=== PATIENT | female | born 1935 | race Caucasian/White ===

== ENCOUNTER 2018-06-25 08:39 | Emergency (ER) | payer MEDICARE, OTHER ==
[~2018-06-25] VITALS: Ht 165.1 cm; Wt 63.5 kg
[2018-06-25] MEDS ORDERED: LEVSOD150 (09:26)
[2018-06-25] MEDS ORDERED: DOCU100 PO (09:53)
== END 2018-06-25 10:20 | disposition home or self-care (01) ==
LOC: ER 08:39
DX: K59.00 Constipation, unspecified (principal); Z79.899 Other long term (current) drug therapy
CPT/HCPCS: 99283

== ENCOUNTER 2021-10-02 13:49 | Observation (INO) | payer MEDICARE, OTHER ==
[~2021-10-02] VITALS: Ht 165.1 cm; Wt 66.8 kg
[~2021-10-02 13:49] MED LIST: DOCU100 PO; LEVSOD150
[2021-10-02 14:44] LABS: BASOPHILS ABSOLUTE AUTO 0.05 K/mm3 (0.00-0.23); BASOPHILS PERCENT AUTO 1 % (0-2); EOSINOPHILS PERCENT AUTO 7 % (0-6); Hemoglobin 14.1 g/dL (11.5-16.0); IMMATURE GRAN ABSOLUTE AUTO 0.01 K/mm3 (0.00-0.10); IMMATURE GRAN PERCENT AUTO 0 % (0-1); LYMPHOCYTES ABSOLUTE AUTO 1.96 K/mm3 (0.84-5.20); LYMPHOCYTES PERCENT AUTO 32 % (21-46); MONOCYTES ABSOLUTE AUTO 0.58 K/mm3 (0.16-1.47); MONOCYTES PERCENT AUTO 9 % (4-13); Mean Corpuscular HGB 32.3 pg (26.0-34.0); Mean Corpuscular HGB Conc 33.6 g/dL (31.5-36.5); Mean Corpuscular Volume 96 fL (80-100); Mean Platelet Volume 9.5 fL (9.1-12.4); NEUTROPHILS PERCENT AUTO 52 % (41-73); Platelet Count 294 K/mm3 (150-400); RDW Coefficient Variation 11.6 % (11.7-14.2); RDW Standard Deviation 41.3 fL (35.1-46.3); Red Blood Cell Count 4.36 M/mm3 (3.80-5.20)
[2021-10-02 14:57] LABS: Anion Gap 7 mmol/L (6-16); Blood Urea Nitrogen 12 mg/dL (8-24); CO2, Blood 27 mmol/L (21-32); Calcium, Blood 8.7 mg/dL (8.5-10.1); Chloride, Blood 107 mmol/L (98-108); Creatinine, Blood 0.86 mg/dL (0.40-1.00); Glomerular Filtration Rate >60 (60-); Glucose, Blood 150 mg/dL (70-99); Potassium, Blood 3.9 mmol/L (3.5-5.5); Sodium, Blood 141 mmol/L (136-145)
[2021-10-02] MEDS ORDERED: ALEN70 PO (18:29)
[2021-10-02] MEDS ORDERED: ATOR20 PO (18:29)
[2021-10-02] MEDS ORDERED: Voltaren100 GM TOP (18:30)
[2021-10-02] MEDS ORDERED: ASPIR 8181 M1 PO (18:31)
[2021-10-02] MEDS ORDERED: MIRALAX17 GM PO (18:31)
[2021-10-02] MEDS ORDERED: LEVSOD25 PO (18:31)
[2021-10-02] MEDS ORDERED: CYCL0.05OP BOTHEYES (18:32)
--- NOTE | 2021-10-03 02:52 | NUR ---
Received patient from ER, came in for Dyspnea. She is beeing admitted to the floor on observation. Patient AAOX4, Denies pain and disconfort at this time. She is breathing at room air, unlabored. Patient is independent in the room. Able to communicates her needs. Patient is pleasant and cooperative with care. Bed in low position, call light within reach. We will continue to monitor patient for any acute changes.
--- NOTE | 2021-10-03 17:11 | NUR ---
SHIFT SUMMARY PT AxOx4. PLEASANT AND COOPERATIVE WITH CARE. PT HAD ECHO, CT OF LUNGS AND PART 1 OF STRESS TEST TODAY. PT DENIES ANY PAIN. IN TODAY, UPDATED ON PLAN OF CARE. VITAL SIGNS REVIEWED. PT CURRENTLY RESTING IN BED, VISITING . DENIES NEEDS AT THIS TIME. CALL LIGHT IN REACH.
--- NOTE | 2021-10-04 04:31 | NUR ---
SHIFT SUMMARY Patient remains stable, no acute events occurs. Pt denies pain and discofort. Sleeping confortably at this time. Second part of the stress test today. Call light in reach. We are monitoring patient until giving report to the oncoming nurse.
[2021-10-04 05:24] LABS: BASOPHILS ABSOLUTE AUTO 0.04 K/mm3 (0.00-0.23); BASOPHILS PERCENT AUTO 1 % (0-2); EOSINOPHILS ABSOLUTE AUTO 0.81 K/mm3 (0.00-0.68); EOSINOPHILS PERCENT AUTO 13 % (0-6); Hematocrit 40.7 % (33.0-51.0); Hemoglobin 13.5 g/dL (11.5-16.0); IMMATURE GRAN ABSOLUTE AUTO 0.01 K/mm3 (0.00-0.10); IMMATURE GRAN PERCENT AUTO 0 % (0-1); LYMPHOCYTES ABSOLUTE AUTO 2.49 K/mm3 (0.84-5.20); LYMPHOCYTES PERCENT AUTO 41 % (21-46); MONOCYTES ABSOLUTE AUTO 0.57 K/mm3 (0.16-1.47); MONOCYTES PERCENT AUTO 9 % (4-13); Mean Corpuscular HGB 31.9 pg (26.0-34.0); Mean Corpuscular HGB Conc 33.2 g/dL (31.5-36.5); Mean Corpuscular Volume 96 fL (80-100); Mean Platelet Volume 9.5 fL (9.1-12.4); NEUTROPHILS ABSOLUTE AUTO 2.21 K/mm3 (1.96-9.15); NEUTROPHILS PERCENT AUTO 36 % (41-73); Platelet Count 272 K/mm3 (150-400); RDW Coefficient Variation 11.6 % (11.7-14.2); RDW Standard Deviation 40.9 fL (35.1-46.3); Red Blood Cell Count 4.23 M/mm3 (3.80-5.20); White Blood Cell Count 6.13 K/mm3 (4.00-11.30)
[2021-10-04 05:44] LABS: Alanine Aminotransfer (ALT/SGP 19 U/L (12-78); Albumin, Blood 3.1 g/dL (3.4-5.0); Albumin/Globulin Ratio 0.9 (0.8-1.8); Alk Phos 59 U/L (50-136); Anion Gap 5 mmol/L (6-16); Aspartate Aminotrans (AST/SGOT 19 U/L (12-37); Bilirubin, Total 0.5 mg/dL (0.1-1.0); Blood Urea Nitrogen 14 mg/dL (8-24); Bun/Creatinine Ratio 18.3 (12.0-20.0); CO2, Blood 26 mmol/L (21-32); Calcium, Blood 8.6 mg/dL (8.5-10.1); Chloride, Blood 108 mmol/L (98-108); Creatinine, Blood 0.77 mg/dL (0.40-1.00); Globulin, Blood 3.5 g/dL (2.2-4.0); Glomerular Filtration Rate >60 (60-); Glucose, Blood 88 mg/dL (70-99); Magnesium, Blood 1.8 mg/dL (1.6-2.4); Potassium, Blood 4.3 mmol/L (3.5-5.5); Sodium, Blood 139 mmol/L (136-145); Total Protein, Blood 6.6 g/dL (6.4-8.2)
--- NOTE | 2021-10-04 07:30 | NUR ---
ASSUMED CARE: PT AMBULATORY IN ROOM. TELE IN PLACE AT [facility]. RN CLINICAL AT BEDSIDE. NO ACUTE NEEDS AT THIS TIME.
[2021-10-04] MEDS ORDERED: Flonase 0.05% N16 GM (11:14)
[2021-10-04] MEDS ORDERED: FLUTICASONE-SA1 EAC2 INH (11:14)
[2021-10-04] MEDS ORDERED: MAGNESIUM OXID400 M4 PO (11:15)
--- NOTE | 2021-10-04 14:07 | NUR ---
REMOTE ADVISOR NURSE AT BEDSIDE FOR SECOND PORTION OF STRESS TEST AT THIS TIME.
--- NOTE | 2021-10-04 15:41 | NUR ---
PT TAKEN BY TRANSPORTER TO IMAGING FOR SECOND PORTION OF STRESS TEST
--- NOTE | 2021-10-04 16:09 | NUR ---
PT RETURNED FROM IMAGING VIA WHEELCHAIR BY STAFF
--- NOTE | 2021-10-04 17:15 | NUR ---
CALL TO DR CHURCHILL TO RELAY THAT THE RESULTS OF THE STRESS TEST STILL HAVE NOT COME IN. STATES OK TO DC PT AND [facility] WILL FOLLOW UP. IVS DC'D WNL. EXPLAINED INSTRUCTIONS TO PT AND DENIED FURTHER QUESTIONS. PT ESCORTED OUT VIA WHEEL CHAIR BY HOSPITAL STAFF.
== END 2021-10-04 17:22 | disposition home or self-care (01) ==
LOC: ER 13:49 → MEDS 13:50
PROVIDERS: Hospitalist; Student in an Organized Health Care Education/Training Program; ADMIT Internal Medicine
DX: J40 Bronchitis, not specified as acute or chronic (principal); E03.9 Hypothyroidism, unspecified; E78.5 Hyperlipidemia, unspecified; M81.0 Age-related osteoporosis without current pathological fracture; Z79.82 Long term (current) use of aspirin; Z87.891 Personal history of nicotine dependence
CPT/HCPCS: 36415; 71045; 71260; 78452; 80048; 80053; 83735; 84484; 85025; 85379; 93005; 93010; 93017; 93306; 96372; 99285-25; A9270; A9500; G0378; J0706; J1650; J2785; Q9967

== ENCOUNTER → 2023-01-19 | Outpatient (CLI) | payer MEDICARE, OTHER ==
[~2023-01-19] MED LIST changes: +ALEN70 PO; +ASPIR 8181 M1 PO; +ATOR20 PO; +CYCL0.05OP BOTHEYES; +FLUTICASONE-SA1 EAC2 INH; +Flonase 0.05% N16 GM; +LEVSOD25 PO; +MAGNESIUM OXID400 M4 PO; +MIRALAX17 GM PO; +Voltaren100 GM TOP
[2023-01-19 13:54] LABS: BASOPHILS PERCENT AUTO 1 % (0-2); EOSINOPHILS ABSOLUTE AUTO 0.69 K/mm3 (0.00-0.68); EOSINOPHILS PERCENT AUTO 9 % (0-6); Hemoglobin 15.8 g/dL (11.5-16.0); IMMATURE GRAN ABSOLUTE AUTO 0.13 K/mm3 (0.00-0.10); IMMATURE GRAN PERCENT AUTO 2 % (0-1); LYMPHOCYTES ABSOLUTE AUTO 2.05 K/mm3 (0.84-5.20); LYMPHOCYTES PERCENT AUTO 27 % (21-46); MONOCYTES PERCENT AUTO 9 % (4-13); Mean Corpuscular HGB 32.3 pg (26.0-34.0); Mean Corpuscular HGB Conc 33.6 g/dL (31.5-36.5); Mean Corpuscular Volume 96 fL (80-100); Mean Platelet Volume 10.4 fL (9.1-12.4); NEUTROPHILS ABSOLUTE AUTO 3.87 K/mm3 (1.96-9.15); NEUTROPHILS PERCENT AUTO 51 % (41-73); NRBC ABSOLUTE 0.02 K/mm3 (0.00-0.02); NRBC Auto 0.3 /100 WBC (0.0-0.2); Platelet Count 167 K/mm3 (150-400); RDW Coefficient Variation 11.7 % (11.7-14.2); RDW Standard Deviation 40.9 fL (35.1-46.3); Red Blood Cell Count 4.89 M/mm3 (3.80-5.20); White Blood Cell Count 7.54 K/mm3 (4.00-11.30)
== END | disposition home or self-care (01) ==
LOC: LAB 13:03 → LAB SHORT 13:03
PROVIDERS: Family Medicine
DX: E78.2 Mixed hyperlipidemia (principal)
CPT/HCPCS: 85025